=== PATIENT | female | born 1980 | race Caucasian/White ===

== ENCOUNTER 2021-07-03 10:52 | Outpatient (REF) | payer OTHER, SELFPAY ==
[2021-07-05 09:25] LABS: HSV Type 1 Ab, IgG Negative (Negative); HSV Type 2 Ab, IgG Positive (Negative)
== END 2021-07-03 10:53 | disposition home or self-care (01) ==
LOC: NCHCN 10:52
PROVIDERS: PCP Family Medicine; Referring Provider Registered Nurse; Visit Provider Registered Nurse
DX: L98.9 Disorder of the skin and subcutaneous tissue, unspecified (principal)
CPT/HCPCS: 86695; 86696

== ENCOUNTER 2021-09-04 15:58 | Outpatient (REF) | payer OTHER, SELFPAY ==
[2021-09-04 22:13] LABS: Abs Immature Grans 0.02 10^3/uL (0.0-0.06); Absolute Basophil Count 0.05 10^3/uL (0.0-0.2); Absolute Eosinophil Count 0.08 10^3/uL (0.0-0.7); Absolute Lymphocyte Count 1.88 10^3/uL (1.2-3.4); Absolute Monocyte Count 0.58 10^3/uL (0.1-0.8); Absolute Neutrophil Count 5.92 10^3/uL (1.2-6.7); Basophils % 0.6; Eosinophils % 0.9; HCT 39.8 % (36.0-46.0); HGB 12.6 g/dL (11.2-15.7); Immature Grans % 0.2; MCH 27.8 pg (27.0-33.0); MCHC 31.7 % (32.0-36.0); MCV 87.9 fL (80-95); MPV 10.5 fL (8.0-11.0); Monocytes % 6.8; Neutrophils % 69.5; Nucleated RBC 0 %; Platelet Count 440 10^3/uL (130-400); RBC 4.53 10^6/uL (3.93-5.22); RDW 15.3 % (11.7-14.6); RDW-SD 49.4 fL; WBC 8.53 10^3/uL (4.4-10.8)
[2021-09-05 07:30] LABS: BUN 11 mg/dL (7-18); CREATININE 0.7 mg/dL (0.55-1.02); Calcium 9.1 mg/dL (8.5-10.1); Cholesterol 223 mg/dL (<200); Glucose 93 mg/dL (74-106)
[2021-09-05 07:31] LABS: Calculated LDL 126 mg/dL (<100); HDL Cholesterol 66 mg/dL (40-60); Triglyceride 156 mg/dL (<150)
[2021-09-05 07:32] LABS: ALT 41 U/L (14-59); AST 30 U/L (15-37); Alkaline Phosphatase 68 U/L (46-116); Anion Gap 11.9 mmol/L (3-11); Bilirubin, Total 0.3 mg/dL (0.2-1.0); CO2 25.1 mmol/L (21.0-32.0); Chloride 105 mmol/L (98-107); Lipase 108 U/L (73-393); Potassium 4.3 mmol/L (3.5-5.1); Sodium 142 mmol/L (136-145)
== END 2021-09-04 15:59 | disposition home or self-care (01) ==
LOC: NCHCN 15:58
PROVIDERS: PCP Family Medicine; Visit Provider Registered Nurse
DX: R10.9 Unspecified abdominal pain (principal); R73.03 Prediabetes; E78.89 Other lipoprotein metabolism disorders; Z01.818 Encounter for other preprocedural examination
CPT/HCPCS: 80053; 80061; 83690; 85025

== ENCOUNTER 2022-01-01 17:14 | Outpatient (REF) | payer OTHER, SELFPAY ==
--- NOTE | 2022-01-01 14:40 | PAPFT_PTH ---
PATIENT: Kristin Beasley [facility] U#:[id number] AGE/SX: 41/F ROOM: RE01/01/[address]: Mary Michael : 1980 BED: DIS: 01/01/2022 SPEC #: [id number] RECD: 01/02/22 12:48 STATUS: LANI REFaheem #: [id number] SILVIA: 01/01/22 14:[address]: Mary Michael DEPT: [facility] Cytology RECD BY: Sharifa Melendez ENTERED: 01/02/22 12:49 SP TYPE: PAPFT OTHR DR: Naman Osuna Tissues: 1 - CX/ENDOCX FOR PAP SMEARS Procedures: PAP THIN PREP/[facility] Screening HPV DNA PROBE Comments: [id number]
[2022-01-08 11:49] LABS: Source: Passed Stone
== END 2022-01-01 17:15 | disposition home or self-care (01) ==
LOC: NCHCN 17:14
PROVIDERS: PCP Family Medicine; Visit Provider Registered Nurse
DX: N20.0 Calculus of kidney (principal); Z12.4 Encounter for screening for malignant neoplasm of cervix; Z11.51 Encounter for screening for human papillomavirus (HPV)
CPT/HCPCS: 88142; 82365; 87624